=== PATIENT | female | born 1965 | race Two or more races ===

== ENCOUNTER 2022-11-15 21:36 | Emergency (ER) | payer OTHER ==
[~2022-11-15] VITALS: Ht 157.5 cm; Wt 86.2 kg
[2022-11-15] MEDS ORDERED: FLUCONAZOLE150 MG PO (21:39)
[2022-11-15] MEDS ORDERED: METRONIDAZOLE500 MG PO (21:39)
[2022-11-15] MEDS ORDERED: CRESTOR5 MG PO (21:40)
[2022-11-15] MEDS ORDERED: WELLBUTRIN SR100 MG PO (21:40)
[2022-11-15] MEDS ORDERED: AMBIEN10 MG PO (21:54)
== END 2022-11-15 22:28 | disposition home or self-care (01) ==
LOC: ER 21:36
DX: R07.9 Chest pain, unspecified (principal)

== ENCOUNTER 2024-06-30 23:26 | Emergency (ER) | payer OTHER ==
[~2024-06-30] VITALS: Ht 157.5 cm; Wt 83.9 kg
[~2024-06-30 23:26] MED LIST: AMBIEN10 MG PO; CRESTOR5 MG PO; FLUCONAZOLE150 MG PO; METRONIDAZOLE500 MG PO; WELLBUTRIN SR100 MG PO
[2024-06-30] MEDS ORDERED: AMBIEN10 MG (23:35)
[2024-07-01] MEDS ORDERED: 0.9 % SODIUM CHLORIDE 1,000 ML IV STA (01:06)
[2024-07-01 02:04] LABS: HEMATOCRIT 39.1 % (36.0-45.00); HEMOGLOBIN 13.1 g/dL (12.0-15.00); MEAN CELL VOLUME 91.8 fL (80.00-100.00); MEAN CORPUSCULAR HEMOGLOBIN 30.8 pg (27.00-32.0); MEAN CORPUSCULAR HGB CONC 33.5 g/dl (32.0-36.0); PLATELET COUNT 160 K/uL (150-450); RED BLOOD COUNT 4.25 M/uL (4.00-6.00); RED CELL DISTRIBUTION WIDTH 13.7 % (11.5-14.5)
[2024-07-01 02:38] LABS: PARTIAL THROMBOPLASTIN TIME 27.1 SECONDS (22.0-34.0); PROTHROMBIN TIME 10.9 SECONDS (9.0-11.5)
[2024-07-01 02:43] LABS: ALBUMIN 3.6 gm/dL (3.4-5.0); BILIRUBIN TOTAL 0.17 mg/dL (0.3-1.2); CALCIUM 9.2 mg/dL (8.5-10.1); CREATININE SERUM 0.67 mg/dL (0.55-1.02); GFR 89.78; GLOBULINA 3.6 G/DL (2.4-3.5); POTASSIUM 3.65 mEq/L (3.5-5.1); TOTAL PROTEIN 7.2 gm/dL (6.4-8.2)
== END 2024-07-01 | disposition left against medical advice (07) ==
LOC: ER
DX: H53.8 Other visual disturbances (principal); D49.6 Neoplasm of unspecified behavior of brain
CPT/HCPCS: 36415; 70450; 96365; 96366; 99284; J7030

== ENCOUNTER 2025-07-25 18:58 | Emergency (ER) | payer OTHER ==
[~2025-07-25] VITALS: Ht 154.9 cm; Wt 81.6 kg
[~2025-07-25 18:58] MED LIST changes: +AMBIEN10 MG
[2025-07-25] MEDS ORDERED: FAMOTIDINE/PF 20 MG/2 ML VIAL IV PUSH STA (20:45)
[2025-07-25 21:18] LABS: BASO % 0.8 % (0.1-1.2); EOS # 0.04 (0.04-0.54); EOS % 3.1 % (0.7-7.0); LYMPH # 0.51 (1.18-3.74); LYMPH % 39.2 % (19.3-53.1); MEAN PLATELET VOLUME 11.50 fl (9.4-12.4); MONO # 0.31 (0.24-0.82); NEUT # 0.42 (1.56-6.13); NEUT % 32.3 % (34.0-71.1); RED CELL DISTRIBUTION WIDTH 13.2 % (11.6-14.4)
[2025-07-25 21:37] LABS: URINE APPEARANCE Cloudy; URINE BILIRRUBIN Negative (NEGATIVE); URINE BLOOD Negative; URINE COLOR Dark Yellow; URINE GLUCOSE Negative (NEGATIVE); URINE KETONE Trace (NEGATIVE); URINE LEUKOCYTE Moderate; URINE NITRATE Negative; URINE PROTEIN 30 (NEGATIVE); URINE UROBILINOGEN 1.0 E.U./dl
[2025-07-25 21:39] LABS: ALT/SGPT 26.0 U/L (12-78); AST/SGOT 43.0 U/L (15-37); BILIRUBIN TOTAL 0.37 mg/dL (0.3-1.2); BUN CREA RATIO 14.0 (7.0-25.0); CREATININE SERUM 0.76 mg/dL (0.55-1.02); GFR 77.37; GLOBULINA 3.5 G/DL (2.4-3.5); GLUCOSE FASTING 102.0 mg/dL (65-100); OSMOLALITY SERUM 275.0 MOSM/KG (275-295)
[2025-07-25 21:40] LABS: MONO % 23.8 % (4.7-12.5)
[2025-07-25 21:43] LABS: URINE BACTERIA 7567.2 uL (0.0-1933); URINE CAST 1.46 uL (0.0-1.40); URINE EPITHELIAL CELLS 58.7 uL (0.0-38.8); URINE WBC 145.9 uL (0.0-23.2)
[2025-07-25 22:00] LABS: COVID-19 AG NEGATIVE (NEGATIVE)
[2025-07-25 22:02] LABS: URINE MUCUS HEAVY; URINE RBC 1.7 uL (0.0-20.8)
[2025-07-25] MEDS ORDERED: 0.9 % SODIUM CHLORIDE 1,000 ML IV STA (22:16)
[2025-07-26 04:12] VITALS: BP 148/82; O2SAT 98
== END 2025-07-26 04:14 | disposition home or self-care (01) ==
LOC: ER 18:58
PROVIDERS: General Practice
DX: R50.9 Fever, unspecified (principal); Z20.822 Contact with and (suspected) exposure to COVID-19
CPT/HCPCS: 36415; 96365; 96366; 99282; J3490; J7030

== ENCOUNTER 2025-07-26 12:23 | Emergency (ER) | payer OTHER ==
[~2025-07-26] VITALS: Ht 154.9 cm; Wt 81.6 kg
[2025-07-26 14:02] VITALS: BP 95/62; O2SAT 99
[2025-07-26] MEDS ORDERED: PANTOPRAZOLE SODIUM 40 MG/VIAL VIAL IV STA (14:20)
[2025-07-26] MEDS ORDERED: 0.9 % SODIUM CHLORIDE 1,000 ML IV STA (14:21)
[2025-07-26 18:14] LABS: ALT/SGPT 32.0 U/L (12-78); AST/SGOT 47.0 U/L (15-37); BILIRUBIN TOTAL 0.32 mg/dL (0.3-1.2); BUN CREA RATIO 19.0 (7.0-25.0); CREATININE SERUM 0.7 mg/dL (0.55-1.02); GFR 85.07; GLOBULINA 3.7 G/DL (2.4-3.5); GLUCOSE FASTING 104.0 mg/dL (65-100); OSMOLALITY SERUM 282.0 MOSM/KG (275-295)
== END 2025-07-26 18:44 | disposition home or self-care (01) ==
LOC: ER 14:28
PROVIDERS: General Practice
DX: B34.9 Viral infection, unspecified (principal); A90 Dengue fever [classical dengue]
CPT/HCPCS: 36415; 96365; 96366; 99282; J3490; J7030

== ENCOUNTER → 2025-07-26 12:39 | Outpatient (CLI) | payer OTHER ==
[2025-07-26 13:01] LABS: BASO % 1.3 % (0.1-1.2); EOS # 0.08 (0.04-0.54); EOS % 5.3 % (0.7-7.0); LYMPH # 0.69 (1.18-3.74); LYMPH % 45.4 % (19.3-53.1); MEAN PLATELET VOLUME 11.20 fl (9.4-12.4); MONO # 0.39 (0.24-0.82); NEUT # 0.33 (1.56-6.13); NEUT % 21.6 % (34.0-71.1); RED CELL DISTRIBUTION WIDTH 13.1 % (11.6-14.4)
[2025-07-26 13:56] LABS: MONO % 25.7 % (4.7-12.5)
== END | disposition home or self-care (01) ==
LOC: LAB 12:39
DX: A90 Dengue fever [classical dengue] (principal)